=== PATIENT | female | born 1930 | race Caucasian/White ===

== ENCOUNTER 2018-10-03 19:31 | Observation (INO) ==
--- NOTE | 2018-10-03 20:58 | Diag Imaging Result Doc PS360 ---
EXAM: CHEST-PORTABLE HISTORY: confusion TECHNIQUE: Chest single view COMPARISON: 04/11/2018 FINDINGS: The lungs are well expanded. The heart is not enlarged. The vessels are not distended. There are no infiltrates. No effusion identified. IMPRESSION: Negative exam. Electronically signed by Olu Fernandez 10/03/2018 8:55 PM
[2018-10-03 21:06] LABS: BILIRUBIN URINE NEGATIVE (NEGATIVE); BLOOD URINE TRACE (NEGATIVE); CLARITY CLEAR (CLEAR); COLOR YELLOW; GLUCOSE URINE NEGATIVE (NEGATIVE); KETONE URINE NEGATIVE (NEGATIVE); LEUKOCYTES URINE 2+ (NEGATIVE); NITRITE URINE NEGATIVE (NEGATIVE); PH URINE 6.5; PROTEIN URINE TRACE mg/dL (NEGATIVE); UROBILINOGEN URINE NORMAL
[2018-10-03 21:13] LABS: URINE SOURCE CLEAN CATCH
[2018-10-03 21:14] LABS: URINE BACTERIA 2+ /HFP; URINE EPITHELIAL CELLS >10 /HPF (<10); URINE RBC <10 /HPF (<10)
[2018-10-03 21:19] LABS: UR AMPHETAMINES QUAL NONE DETECTED (NONE DETECT); UR BARBITUATES QUAL NONE DETECTED (NONE DETECT); UR BENZODIAZEPIN QUAL NONE DETECTED (NONE DETECT); UR CANNABINOIDS QUAL NONE DETECTED (NONE DETECT); UR COCAINE QUAL NONE DETECTED (NONE DETECT); UR METHADONE QUAL NONE DETECTED (NONE DETECT); UR METHAMPHETAMINE QUAL NONE DETECTED (NONE DETECT); UR OPIATES QUAL NONE DETECTED (NONE DETECT); UR OXYCODONE QUAL NONE DETECTED (NONE DETECT); UR PCP QUAL NONE DETECTED (NONE DETECT); UR PROPOXYPHENE QUAL NONE DETECTED (NONE DETECT); UR TCA QUAL NONE DETECTED (NONE DETECT)
[2018-10-03 21:51] LABS: BASO# 0.04 X1000 (0.0-0.2); BASO% 0.5 % (0.0-0.8); EOS# 0.05 X1000 (0.0-0.7); EOS% 0.6 % (0.0-10.0); HEMATOCRIT 36.8 % (37.0-47.0); HEMOGLOBIN 12.1 g/dL (12.0-16.0); IMM GRAN# 0.01 X1000 (0.0-0.04); IMM GRAN% 0.1 % (0.0-0.5); LYMPH# 4.75 X1000 (1.2-3.4); LYMPH% 57.6 % (20.5-51.1); MCH 27.9 PG (27-31); MCHC 32.9 g/dL (33-37); MONO# 0.97 X1000 (0.11-0.59); MONO% 11.8 % (1.7-9.3); MPV 11.3 FL (7.4-10.4); NEUT# 2.43 X1000 (1.4-6.5); NEUT% 29.4 % (42.2-75.2); PLT 185 X1000 (130-400); RBC 4.33 XMIL (4.2-5.4); RDW 14.7 % (11.5-14.5); WBC 8.25 X1000 (4.8-10.8)
[2018-10-03 21:54] LABS: ALBUMIN 4.1 g/dL (3.5-5.0); CALCIUM 9.5 mg/dL (8.8-10.2); CREATININE 1.4 mg/dL (0.5-0.9); POTASSIUM 3.6 mmol/L (3.5-5.1); TOTAL BILIRUBIN 0.3 mg/dL (0.20-1.00); TOTAL PROTEIN 7.2 g/dL (6.3-8.3)
--- NOTE | 2018-10-03 21:56 | Diag Imaging Result Doc PS360 ---
EXAM: CT HEAD W/O CONTRAST HISTORY: head trauma TECHNIQUE: CT head without contrast COMPARISON: 04/11/2018 FINDINGS: No parenchymal hemorrhage. No epidural or subdural hematoma. No subarachnoid hemorrhage. There is atrophy with chronic microvascular ischemic changes. No mass identified on this noncontrasted exam. No hydrocephalus. No skull fracture. IMPRESSION: No hemorrhage. No injury. This exam was performed using automated exposure control, adjustment of mA or kV according to patient size, and/or use of iterative reconstruction technique. Electronically signed by Olu Fernandez 10/03/2018 9:53 PM
[2018-10-03] MEDS ORDERED: ROCEPHIN IM ONE (22:31)
[2018-10-03] MEDS ORDERED: NS 1,000 ML IV ONE (22:31)
[2018-10-03] MEDS ORDERED: XYLOCAINE-MPF 1% INJ ONE (22:31)
--- NOTE | 2018-10-03 22:36 | PROVIDER DOCUMENTATION ---
This chart was entered by Cris Rodriguez Scribe, acting as scribe for Andrew Santos MD. HPI-Psychological Disorder - General Chief Complaint: General Adult Stated Complaint: AMS Time Seen by Provider: 10/03/18 20:08 Source: EMS, [facility] records Unable to obtain history due to:: altered (pt unable to give any information, pt confused, A&Ox0) Allergies/Adverse Reactions: Patient Allergies Allergy/AdvReac Type Severity Reaction Status Date / Time Penicillins Allergy Intermediate RASH Verified 04/11/18 12:12 codeine Allergy Mild NAUSEA/VOMI Verified 04/11/18 12:12 TING adhesive Allergy RASH Verified 04/11/18 12:12 Sulfa (Sulfonamide Allergy sick to Verified 04/11/18 12:12 Antibiotics) stomach Home Medications: Home Medication List Medication Instructions Recorded Confirmed Last Taken Type Levothyroxine [Synthroid] 75 microgm PO DAILY 05/16/13 04/16/18 04/10/18 08:00 History Amlodipine [Norvasc] 5 mg PO QHS 01/12/15 04/16/18 04/10/18 20:10 History Hydralazine HCl 10 mg PO BID 08/08/17 04/16/18 04/10/18 20:10 History Omeprazole 1 cap PO DAILY 11/05/17 04/16/18 04/10/18 11:00 History Sennosides/Docusate Sodium 1 each PO QHS 11/05/17 04/16/18 04/10/18 20:10 History [Senna-Docusate Sodium Tablet] Donepezil [Aricept] 5 mg PO QHS 02/12/18 04/16/18 04/10/18 20:10 History Rosuvastatin Calcium [Crestor] 5 mg PO QHS 02/12/18 04/16/18 04/10/18 20:10 History Clotrimazole/Bmethasone Cream 1 applicatn TOP BID 7 Days tube 04/08/1804/10/18 20:10 Rx [Lotrisone Cream] Polyethylene Glycol 3350 [Miralax] 17 gm PO DAILY #30 powd.pack 04/11/18 Unknown Rx Solifenacin Succinate [Vesicare] 5 mg PO DAILY 0804/16/18 04/10/18 08:00 History CefDINIR [Omnicef] 300 mg PO BID capsule 04/19/18 Unknown Rx - History of Present Illness-Psych Nature of Presenting Problem: pt is a 88 yr old female presenting via EMS from [facility], per EMS and [facility] staff report pt has been aggressive with other residents and staff , wandering, more confused. pt unable to give any information, pt very confused , pt repeatedly reports she does not knw why shes here and she wants to go home. Onset/Duration: reports: unsure Review of Systems - Adult - REVIEW OF SYSTEMS - ADULT ROS:: unobtainable per condition Constitutional: reports: no symptoms reported Eyes: reports: no symptoms reported Ears, Nose, Mouth & Throat: reports: no symptoms reported Cardiovascular: reports: no symptoms reported Respiratory: reports: no symptoms reported Gastrointestinal: reports: no symptoms reported Genitourinary: reports: no symptoms reported Musculoskeletal: reports: no symptoms reported Integumentary: reports: no symptoms reported Neurological: reports: no symptoms reported Psychiatric: reports: no symptoms reported Endocrine: reports: no symptoms reported Hematologic/Lymphatic: reports: no symptoms reported Allergic/Immunologic: reports: no symptoms reported All Other Systems: Reviewed and Negative Past History - Adult - PAST MEDICAL HISTORY-ADULT Review of Records: reports: Old Records Reviewed, Nursing Assessment Review, Medications Reviewed, Social history reviewed & non-contributory. Major Childhood Illnesses: reports: denies history Cardiovascular: reports: blood clots, CAD, HTN, hyperlipidemia Respiratory: reports: denies history Gastrointestinal: reports: diverticulosis, GERD, other (hernia) Obstetrical/Gynecological: reports: denies history Genitourinary: reports: chronic UTI's, other (obstruction; nephrectomy) Musculoskeletal: reports: denies history Neurological: reports: dementia Endocrine/Immune: reports: thyroid disorder (hypo) Other Conditions: reports: blindness (R), cataract/glaucoma - PRIOR SURGERIES/PROCEDURES Surgical/Procedure History: reports: recent surgery, CABG, cholecystectomy, hysterectomy, joint replacement (bilateral knees), back/neck (neck), other ( kidney removed, catarct removal) - IMMUNIZATION STATUS Childhood Immunizations: See Nurse Assessment Flu Vaccine: See Nurse Assessment - FAMILY HISTORY Family History: reviewed, not pertinent - SOCIAL HISTORY Living Situation: care facility Physical Exam-Psych Focus - Physical Exam-Psych Initial Vital Signs Reviewed: Yes Appearance: alert, anxious, impaired recent memory, impaired remote memory Neurological: alert, agitated, anxious Thoughts/Hallucinations: no apparent hallucination HENMT: normocephalic/atraumatic, moist mucous membranes Neck: full range of motion, supple Respiratory: lungs clear, normal breath sounds Cardiovascular: normal peripheral pulses, regular rate, rhythm, no edema Abdominal Exam: non tender, soft Lymphatic: no adenopathy Back Exam: normal inspection Extremity: normal range of motion, non-tender, normal inspection Integumentary: normal color, normal turgor, warm/dry Progress - PLAN OF CARE/RESULTS Progress/Plan/Lab Results: Vital Signs - 8 hr 10/03/18 19:32 Temperature 98.5 F Pulse Rate 70 Respiratory Rate 16 Blood Pressure 178/76 O2 Sat by Pulse Oximetry 99 Laboratory Results - last 24 hr 10/03/18 10/03/18 10/03/18 20:40 20:40 21:25 WBC RBC Hgb Hct MCV MCH MCHC RDW Std Deviation Plt Count MPV Immature Gran % (Auto) Neut % (Auto) Lymph % (Auto) [place] % (Auto) Eos % (Auto) Baso % (Auto) Immature Gran # (Auto) Neut # (Auto) Lymph # (Auto) [place] # (Auto) Eos # (Auto) Baso # (Auto) Sodium 139 Potassium 3.6 Chloride 102 Carbon Dioxide 21 L Anion Gap 16 BUN 26 H Creatinine 1.4 H Estimated GFR/1.73 m2 35 BUN/Creatinine Ratio 19 Glucose 85 Calculated Osmolality 282 Calcium 9.5 Magnesium Total Bilirubin 0.30 AST 23 ALT 11 Alkaline Phosphatase 86 Troponin T Total Protein 7.2 Albumin 4.1 Globulin 3.0 Albumin/Globulin Ratio 1.0 Free T4 Urine Source CLEAN CATCH Urine Color YELLOW Urine Clarity CLEAR Urine pH 6.5 Ur Specific [place] 1.010 Urine Protein TRACE A Urine Ketones NEGATIVE Urine Blood TRACE Urine Nitrite NEGATIVE Urine Bilirubin NEGATIVE Urine Urobilinogen NORMAL Urine Microscopic RBC <10 Urine WBC 2+ A Urine Microscopic WBC 10-20 A Ur Epithelial Cells >10 A Urine Bacteria 2+ Urine Glucose NEGATIVE Urine Opiates Screen NONE DETECTED Ur Oxycodone Screen NONE DETECTED Urine Methadone Screen NONE DETECTED U Propoxyphene Qual NONE DETECTED Ur Barbituates Screen NONE DETECTED Ur Tricyclics Screen NONE DETECTED Ur Phencyclidine Scrn NONE DETECTED Ur Amphetamines Screen NONE DETECTED U Methamphetamines Scrn NONE DETECTED U Benzodiazepines Scrn NONE DETECTED Urine Cocaine Screen NONE DETECTED U Cannabinoids Screen NONE DETECTED 10/03/18 10/03/18 10/03/18 21:25 21:25 21:25 WBC 8.25 RBC 4.33 Hgb 12.1 Hct 36.8 L MCV 85.0 MCH 27.9 MCHC 32.9 L RDW Std Deviation 14.7 H Plt Count 185 MPV 11.3 H Immature Gran % (Auto) 0.1 Neut % (Auto) 29.4 L Lymph % (Auto) 57.6 H [place] % (Auto) 11.8 H Eos % (Auto) 0.6 Baso % (Auto) 0.5 Immature Gran # (Auto) 0.01 Neut # (Auto) 2.43 Lymph # (Auto) 4.75 H [place] # (Auto) 0.97 H Eos # (Auto) 0.05 Baso # (Auto) 0.04 Sodium Potassium Chloride Carbon Dioxide Anion Gap BUN Creatinine Estimated GFR/1.73 m2 BUN/Creatinine Ratio Glucose Calculated Osmolality Calcium Magnesium 2.2 Total Bilirubin AST ALT Alkaline Phosphatase Troponin T 0.023 Total Protein Albumin Globulin Albumin/Globulin Ratio Free T4 Urine Source Urine Color Urine Clarity Urine pH Ur Specific [place] Urine Protein Urine Ketones Urine Blood Urine Nitrite Urine Bilirubin Urine Urobilinogen Urine Microscopic RBC Urine WBC Urine Microscopic WBC Ur Epithelial Cells Urine Bacteria Urine Glucose Urine Opiates Screen Ur Oxycodone Screen Urine Methadone Screen U Propoxyphene Qual Ur Barbituates Screen Ur Tricyclics Screen Ur Phencyclidine Scrn Ur Amphetamines Screen U Methamphetamines Scrn U Benzodiazepines Scrn Urine Cocaine Screen U Cannabinoids Screen 10/03/18 21:25 WBC RBC Hgb Hct MCV MCH MCHC RDW Std Deviation Plt Count MPV Immature Gran % (Auto) Neut % (Auto) Lymph % (Auto) [place] % (Auto) Eos % (Auto) Baso % (Auto) Immature Gran # (Auto) Neut # (Auto) Lymph # (Auto) [place] # (Auto) Eos # (Auto) Baso # (Auto) Sodium Potassium Chloride Carbon Dioxide Anion Gap BUN Creatinine Estimated GFR/1.73 m2 BUN/Creatinine Ratio Glucose Calculated Osmolality Calcium Magnesium Total Bilirubin AST ALT Alkaline Phosphatase Troponin T Total Protein Albumin Globulin Albumin/Globulin Ratio Free T4 1.60 Urine Source Urine Color Urine Clarity Urine pH Ur Specific [place] Urine Protein Urine Ketones Urine Blood Urine Nitrite Urine Bilirubin Urine Urobilinogen Urine Microscopic RBC Urine WBC Urine Microscopic WBC Ur Epithelial Cells Urine Bacteria Urine Glucose Urine Opiates Screen Ur Oxycodone Screen Urine Methadone Screen U Propoxyphene Qual Ur Barbituates Screen Ur Tricyclics Screen Ur Phencyclidine Scrn Ur Amphetamines Screen U Methamphetamines Scrn U Benzodiazepines Scrn Urine Cocaine Screen U Cannabinoids Screen Orders Category Date Time Status Cardiac Monitoring DIRECTED Care 10/03/18 20:24 Active Saline Loc NOW Care 10/03/18 20:24 Active Straight Catheterization ORDERED Care 10/03/18 20:24 Active CHEST-PORTABLE [RAD] Stat Exams 10/03/18 20:[address] HEAD W/O CONTRAST [CT] Stat Exams 10/03/18 21:27 Completed BLOOD CULTURE [BLDCUL] Stat Lab 10/03/18 21:20 Received CBC WITH ELECTRONIC DIFF [HEME] Stat Lab 10/03/18 21:25 Completed COMPREHENSIVE METABOLIC PANEL [CHEM] Stat Lab 10/03/18 21:25 Completed FREE T4 Stat Lab 10/03/18 21:25 Completed MAGNESIUM [CHEM] Stat Lab 10/03/18 21:25 Completed TROPONIN T Stat Lab 10/03/18 21:[address] W/POSS RFLX CULT [URINALYSIS] Stat Lab 10/03/18 20:40 Completed URINE CULTURE [RM] Routine Lab 10/03/18 20:40 Received URINE DRUG SCREEN PL Stat Lab 10/03/18 20:40 Completed 0.9% Sodium Chloride Inj [Ns] 1,000 ml Med 10/03/18 22:31 Ordered IV 125 mls/hr CefTRIAXONE [Rocephin] Med 10/03/18 22:31 Once 1 gm IM NOW ONE Lidocaine 1% Pf [Xylocaine-Mpf 1%] Med 10/03/18 22:31 Once 5 ml INJ NOW ONE EKG [EKG] Stat Ther 10/03/18 21:45 Ordered Result Diagrams: 10/03/18 21:25 10/03/18 21:25 - EKG 1 Time of EKG reading by physician:: 21:55 EKG Read and Signed by:: Andrew Santos EKG Interpretation (*Must complete 3 of following elements*): Abnormal ( nonspecific twave abnormality) Rate: 65 Rhythm: nsr [place]: normal QRS: normal MD Interval: normal - CONSULTS/PCP/HOSPITALIST Notification #1 *Consult/PCP/Hospitalist*: DR JENKINS Time Discussed: 22:35 Consult Disposition: Admit (CULTURE, HYDRATE,CEFTRIAX) Departure - Departure Date of Disposition Decision: 10/03/18 Time of Disposition Decision: 22:35 DIAGNOSIS: Altered mental status, unspecified, Dementia, UTI (urinary tract infection), Dehydration Disposition: ADMITTED INPATIENT 09 Certified Medical Emergency: Emergent Condition: Stable Referrals and Follow-Ups: None,PCP [Primary Care Provider] - - Critical Care Note This patient required my direct & personal management of CC.: No Attestation - Physician/ DEVYN Attestation Patient care was provided by Advanced Practice Provider:: No The physician spent face to face time with patient:: Yes Advanced Practice Provider documentation review:: Supervising physician onsite and consulted in the evaluation and care of this patient. The physician did have a face to face encounter with the patient. This chart was documented by the indicated scribe, (Cris Rodriguez, Theodora) and accurately reflects the services I performed and decisions made by me, Andrew Santos MD, as attested by the provider's signature.
[2018-10-04] MEDS ORDERED: ZOFRAN IV PRN ×2 (00:05→09:27)
[2018-10-04] MEDS ORDERED: TYLENOL PO PRN (09:23)
[2018-10-04] MEDS ORDERED: MILK OF MAGNESIA PO PRN (09:23)
[2018-10-04] MEDS: VESICARE PO SCH (10:08)
[2018-10-04] MEDS: ZOLOFT PO SCH (10:08)
[2018-10-04] MEDS: APRESOLINE PO SCH ×2 (10:08→21:59)
[2018-10-04] MEDS: ROCEPHIN 1 GM in NS 50 ML IV SCH (10:09)
[2018-10-04] MEDS: PEPCID PO SCH ×2 (10:09→22:13)
[2018-10-04] MEDS ORDERED: ROCEPHIN 1 GM in NS 50 ML IV ONE (12:00)
--- NOTE | 2018-10-04 18:25 | EKG Report ---
Test Performed on : 10/03/2018 9:54:46 PM Test Reason : psych Blood Pressure : / mmHG Vent. Rate : 065 BPM Atrial Rate : 065 BPM P-R Int : 178 ms QRS Dur : 092 ms QT Int : 400 ms P-R-T Axes : 074 012 032 degrees QTc Int : 416 ms Normal sinus rhythm. Nonspecific T wave abnormality Abnormal ECG When compared with ECG of 16-APR-2018 14:26, (Unconfirmed) No significant change was found Unconfirmed Result
[2018-10-04] MEDS ORDERED: GEODON IM PRN (21:25)
[2018-10-04] MEDS ORDERED: STERILE WATER INJ. INJ PRN (21:25)
[2018-10-04] MEDS ORDERED: BENADRYL IV PRN (21:42)
[2018-10-04] MEDS: NORVASC PO SCH (21:59)
[2018-10-04] MEDS: CRESTOR PO SCH (22:13)
[2018-10-04] MEDS: ATIVAN IV PRN (22:13)
[2018-10-05] MEDS: SYNTHROID PO SCH (06:25)
[2018-10-05] MEDS: ROCEPHIN 1 GM in NS 50 ML IV SCH (10:10)
[2018-10-05] MEDS: VESICARE PO SCH (10:10)
[2018-10-05] MEDS: ZOLOFT PO SCH (10:10)
[2018-10-05] MEDS: MIRALAX PO SCH (10:10)
[2018-10-05] MEDS: PEPCID PO SCH ×2 (10:10→22:36)
[2018-10-05] MEDS: APRESOLINE PO SCH ×2 (10:11→22:36)
--- NOTE | 2018-10-05 13:34 | HISTORY AND PHYSICAL ---
CHIEF COMPLAINT: Confusion. HISTORY OF PRESENT ILLNESS: The patient is an 88-year-old female, who resides in alf care. She presented to the ER with increased confusion, disorientation and agitation. Currently, her urine does appear to be infected. SOCIAL HISTORY: Patient is a . She currently resides in alf care. Does not smoke or drink. ALLERGIES: Penicillin, codeine, adhesives and sulfa. MEDICATIONS: Synthroid 75, Norvasc 5, hydralazine 10 b.i.d., omeprazole, Senna, Aricept 5, Crestor 10, VESIcare. REVIEW OF SYSTEMS: Unobtainable due to patient's confusion. However, per the staff, she has become more aggressive, wandering, more confused. Continues to repeat she does not know why she is here and states she does not want to stay here. Has no real complaints otherwise. The family denied any recent fevers, chills, or other infectious-type symptoms. PAST MEDICAL HISTORY: History of blood clots, coronary artery disease, hypertension, hyperlipidemia, dementia, chronic reflux, chronic urinary tract infections. She has had an oophorectomy, hypothyroidism, cataract surgery, had a CABG in the past, cholecystectomy, hysterectomy, bilateral knee replacements, and has had neck surgery in the past. FAMILY HISTORY: Noncontributory. PHYSICAL EXAMINATION: VITAL SIGNS: Reviewed. Temperature 98.5 degrees, pulse 70, respiratory 16, BP 178/76, satting 98% on room air. GENERAL: Patient is awake, alert, currently in no distress. HEENT: Normocephalic. NECK: Supple. CV: Regular rate. CHEST: Clear. ABDOMEN: Soft. EXTREMITIES: Moves all extremities. NEUROLOGIC: No focal changes. SKIN: Warm, dry, no rashes. ASSESSMENT: 1. Metabolic encephalopathy likely secondary to urinary tract infection. 2. Hypothyroidism. 3. Hypertension. 4. Chronic coronary artery disease. 5. Known dementia. PLAN: We will admit patient to the hospital, place her on antibiotics. Check urine culture. If it is clear, then we will attempt to transfer to [facility]. We will continue her home medications as she is willing to take them. She has chronic renal failure, which appears to be at her baseline and will follow. cc: Phil Wilks MD
--- NOTE | 2018-10-05 15:18 | PROGRESS NOTE ---
DATE: 10/04/2018 SUBJECTIVE: This morning the patient is calm. However, she is confused and disoriented. Last night on multiple occasions she was combative and required restraints for her safety as well as the staff's safety. OBJECTIVE: Vital Signs: Reviewed. Temperature 98 degrees, pulse 50, respiratory rate 18, and BP 188/54. General: Patient is awake and alert. Currently, she is calm, but disoriented. She is very easily agitated and becomes angry and combative. HEENT: Normocephalic. Neck: Supple. CARDIOVASCULAR: Regular rate. Chest: Clear. Abdomen: Soft. Nondistended. Appears nontender when the patient is distracted. However when asked, she is tender before palpation. Extremities: Moves all extremities. Neurologic: No focal changes. She is awake and alert, but confused and disoriented. Skin: Warm and dry. No rashes. ASSESSMENT: 1. Acute metabolic encephalopathy. 2. Presumed urinary tract infection on Rocephin. 3. Hypertension. 4. Agitation. PLAN: We will continue patient in hospital. Continue IV Rocephin. Continue chemical and physical restraints as needed for her safety. Will follow. cc: Phil Wilks MD
[2018-10-05] MEDS: ATIVAN IV PRN ×2 (17:49→22:38)
[2018-10-05] MEDS: CRESTOR PO SCH (22:36)
[2018-10-05] MEDS: NORVASC PO SCH (22:36)
[2018-10-06] MEDS: SYNTHROID PO SCH (06:09)
[2018-10-06 07:10] LABS: HEMATOCRIT 36.8 % (37.0-47.0); HEMOGLOBIN 11.9 g/dL (12.0-16.0); MCH 27.7 PG (27-31); MCHC 32.3 g/dL (33-37); MCV 85.6 FL (81-99); MPV 11.5 FL (7.4-10.4); RBC 4.3 XMIL (4.2-5.4); RDW 14.9 % (11.5-14.5); WBC 6.54 X1000 (4.8-10.8)
[2018-10-06 07:47] LABS: ALBUMIN 3.5 g/dL (3.5-5.0); CALCIUM 9.2 mg/dL (8.8-10.2); CREATININE 1.1 mg/dL (0.5-0.9); MAGNESIUM 2.1 mg/dL (1.5-2.7); TOTAL BILIRUBIN 0.4 mg/dL (0.20-1.00); TOTAL PROTEIN 6.1 g/dL (6.3-8.3)
[2018-10-06] MEDS: ROCEPHIN 1 GM in NS 50 ML IV SCH (09:30)
[2018-10-06] MEDS: MIRALAX PO SCH (09:30)
[2018-10-06] MEDS: PEPCID PO SCH (09:30)
[2018-10-06] MEDS: ZOLOFT PO SCH (09:30)
[2018-10-06] MEDS: APRESOLINE PO SCH (09:30)
[2018-10-06] MEDS: VESICARE PO SCH (09:30)
--- NOTE | 2018-10-06 12:41 | PROGRESS NOTE ---
DATE: 10/06/2018 SUBJECTIVE: Patient is still confused disoriented and agitated at times. OBJECTIVE: Vitals: Afebrile. Vital signs stable. She is awake, alert. She is currently calm. HEENT: Normocephalic. Neck: Supple. CARDIOVASCULAR: Regular rate. Chest: Clear. Abdomen: Soft, nondistended. Neurologic: No focal changes. Patient is awake, alert, but confused, disoriented. She is disoriented to person, place and time, as well as reason. ASSESSMENT: 1. Acute metabolic encephalopathy. Her culture initially was read as requiring more incubation. Currently, her urine culture appears to be negative. 2. Dementia. 3. Hypothyroidism. 4. Hypertension. PLAN: We will continue patient in the hospital. Continue Rocephin today. We will reconsult [facility] and can transfer when bed is available. cc: Phil Wilks MD
[2018-10-06 13:54] VITALS: BP 148/52
--- NOTE | 2018-10-08 04:27 | DISCHARGE SUMMARY ---
ADMISSION DATE: 10/03/2018 DISCHARGE DATE: 10/06/2018 DISCHARGE DIAGNOSES: 1. Acute metabolic encephalopathy, appears resolved. 2. Urinary tract infection, appears resolved. Urine culture is negative. 3. Hypothyroidism. 4. Hypertension. 5. Chronic coronary artery disease. 6. Known dementia with acute worsening. CONSULTATIONS: None other than [facility]. PROCEDURES: None. BRIEF HOSPITAL COURSE: The patient is an 88-year-old female who presented to the emergency department with acute metabolic encephalopathy, acute mental status change, disorientation, and agitation. Her urine appeared abnormal in the ER. She, therefore, was admitted to the hospital for a urinary tract infection. Her culture initially said more incubation required and then was changed to no growth. She was placed on antibiotics. She remained afebrile. Vital signs remained stable. Labs remained stable. However, she remained acutely disoriented, confused, and agitated. As her urine culture returned negative, we will discharge her from the hospital and transfer her to [facility]. DISPOSITION: The patient will be transferred to [facility]. TIME SPENT: Greater than 30 minutes were spent in total care. INSTRUCTIONS: She will follow up as needed after she is discharged from [place]. Hopefully, they will be able to improve her acute mental status changes. cc: Phil Wilks MD
== END 2018-10-06 19:15 ==
LOC: P.ED 19:31 → P.MEDSURG 19:31 → SUATTDRO 23:57
PROVIDERS: ADMIT Family Medicine; ATTEND Family Medicine
CPT/HCPCS: 70450; 71010; 71045; 80053; 80104; 80301; 80305; 81001; 83735; 84439; 84484; 85025; 85027; 87040; 87088; 93005; 96372; 99285; A9270; G0431; G0434; G0477; J0696; J2060; J7030